=== PATIENT | male | born 1960 | race Caucasian/White ===

== ENCOUNTER → 2016-03-30 | Outpatient (CLI) | payer OTHER ==
[~2016-03-30] MED LIST: FISH OIL1 IU PO; LISINOPRIL AND1 TA1 PO; MELOXICAM7.5 MG PO; MULTIVITAMIN1 SGL PO; NATURAL FLAX1000 MG PO; NATURE'S BLEND100 MG PO; SUDAFED 12HR120 MG PO; TYLENOL 325MG325 MG PO; ULTRAM50 M1 PO
== END ==
LOC: RAD 07:49
DX: Z00.00 Encounter for general adult medical examination without abnormal findings (principal); I10 Essential (primary) hypertension; E78.2 Mixed hyperlipidemia

== ENCOUNTER → 2016-05-06 | Outpatient (CLI) | payer OTHER | LOC: RAD 12:57 | DX: M16.12 Unilateral primary osteoarthritis, left hip (principal) ==

== ENCOUNTER → 2016-10-21 | Outpatient (CLI) | payer OTHER ==
[~2016-10-21] VITALS: Ht 185.4 cm; Wt 153.6 kg
[2016-10-21 16:12] VITALS: BP 151/94
== END ==
LOC: AMSURD 07:44
DX: Z01.818 Encounter for other preprocedural examination (principal); Z01.810 Encounter for preprocedural cardiovascular examination

== ENCOUNTER → 2016-11-05 | Outpatient (CLI) | payer OTHER ==
[2016-10-21 16:12] VITALS: BP 151/94
== END ==
LOC: PT 09:39
DX: Z01.818 Encounter for other preprocedural examination (principal); M16.12 Unilateral primary osteoarthritis, left hip

== ENCOUNTER 2016-12-23 09:30 | Outpatient (RCR) | payer OTHER ==
[2016-10-21 16:12] VITALS: BP 151/94
== END 2016-12-23 10:00 | disposition home or self-care (01) ==
LOC: PT 09:30
DX: Z47.1 Aftercare following joint replacement surgery (principal); Z96.642 Presence of left artificial hip joint

== ENCOUNTER → 2017-05-18 | Outpatient (CLI) | payer OTHER ==
[2016-10-21 16:12] VITALS: BP 151/94
== END ==
LOC: RAD 08:52
DX: Z47.1 Aftercare following joint replacement surgery (principal); Z96.642 Presence of left artificial hip joint; M16.11 Unilateral primary osteoarthritis, right hip

== ENCOUNTER → 2017-10-13 | Outpatient (CLI) | payer OTHER ==
[2016-10-21 16:12] VITALS: BP 151/94
[2017-10-13 09:13] LABS: EOS # 0.2 (0.04-0.40); EOS % 2.8 % (0.0-4.0); HEMOGLOBIN 13.3 g/dL (13.5-18.0); LYMPH# 1.8 (1.50-4.00); MEAN CELL VOLUME 79 fl (78-100); MEAN CORPUSCULAR HEMOGLOBIN 26 pg (27-31); MEAN CORPUSCULAR HGB CONC 32 g/dL (33-37); MEAN PLATELET VOLUME 10.1 fl (7.4-10.4); MONO # 0.8 (0.20-0.80); NEU # 4.7 (1.40-6.50); PLATELET COUNT 298 K/mm3 (130-400); RED BLOOD COUNT 5.21 M/mm3 (4.20-5.60); RED CELL DISTRIBUTION WIDTH 16.3 % (11.5-14.5); WHITE BLOOD COUNT 7.6 K/mm3 (4.8-10.8)
[2017-10-13 09:33] LABS: ALBUMIN 4.3 g/dL (3.5-5.0); CALCIUM 9.7 mg/dL (8.4-10.2); POTASSIUM 4.4 mmol/L (3.6-5.0); TOTAL BILIRUBIN 0.6 mg/dL (0.2-1.3); TOTAL PROTEIN 7.3 g/dL (6.3-8.2)
[2017-10-13 10:42] LABS: ERYTHROCYTE SEDIMENTATION RATE 13 mm/hr (0-20)
== END ==
LOC: LAB 08:32
PROVIDERS: Internal Medicine
DX: Z12.5 Encounter for screening for malignant neoplasm of prostate (principal); Z00.00 Encounter for general adult medical examination without abnormal findings; Z12.11 Encounter for screening for malignant neoplasm of colon

== ENCOUNTER → 2018-05-16 | Outpatient (CLI) | payer OTHER ==
[2016-10-21 16:12] VITALS: BP 151/94
== END ==
LOC: RAD 15:24
DX: M17.11 Unilateral primary osteoarthritis, right knee (principal); Z96.642 Presence of left artificial hip joint

== ENCOUNTER → 2018-11-15 | Outpatient (CLI) | payer OTHER ==
[2016-10-21 16:12] VITALS: BP 151/94
[2018-11-15 08:04] LABS: EOS # 0.3 (0.04-0.40); EOS % 2.9 % (0.0-4.0); HEMATOCRIT 41.7 % (42.0-52.0); HEMOGLOBIN 13.3 g/dL (13.5-18.0); LYMPH# 2.2 (1.50-4.00); MEAN CELL VOLUME 77 fl (78-100); MEAN CORPUSCULAR HEMOGLOBIN 25 pg (27-31); MEAN CORPUSCULAR HGB CONC 32 g/dL (33-37); MEAN PLATELET VOLUME 9.2 fl (7.4-10.4); NEU # 5.6 (1.40-6.50); PLATELET COUNT 325 K/mm3 (130-400); RED BLOOD COUNT 5.39 M/mm3 (4.20-5.60); RED CELL DISTRIBUTION WIDTH 15.2 % (11.5-14.5); WHITE BLOOD COUNT 9.2 K/mm3 (4.8-10.8)
[2018-11-15 08:11] LABS: ALBUMIN 4.3 g/dL (3.5-5.0); POTASSIUM 4.3 mmol/L (3.5-5.1)
[2018-11-15 08:12] LABS: CALCIUM 9.5 mg/dL (8.3-10.5)
[2018-11-15 08:15] LABS: TOTAL BILIRUBIN 0.5 mg/dL (0.2-1.2)
[2018-11-15 09:06] LABS: ERYTHROCYTE SEDIMENTATION RATE 13 mm/hr (0-20)
== END ==
LOC: LAB 07:53
PROVIDERS: Internal Medicine
DX: Z00.00 Encounter for general adult medical examination without abnormal findings (principal); Z12.5 Encounter for screening for malignant neoplasm of prostate; Z12.11 Encounter for screening for malignant neoplasm of colon

== ENCOUNTER → 2019-07-27 | Outpatient (CLI) | payer OTHER ==
[2016-10-21 16:12] VITALS: BP 151/94
== END ==
LOC: LAB 07:47
DX: U07.1 COVID-19 (principal); Z56.89 Other problems related to employment

== ENCOUNTER → 2020-01-30 | Outpatient (CLI) | payer OTHER ==
[2016-10-21 16:12] VITALS: BP 151/94
[2020-01-30 11:40] LABS: EOS # 0.3 (0.04-0.40); HEMATOCRIT 43.2 % (42.0-52.0); LYMPH# 2.3 (1.50-4.00); MEAN CELL VOLUME 86 fl (78-100); MEAN CORPUSCULAR HEMOGLOBIN 28 pg (27-31); MEAN CORPUSCULAR HGB CONC 32 g/dL (33-37); MEAN PLATELET VOLUME 9.8 fl (7.4-10.4); MONO # 0.8 (0.20-0.80); NEU # 5.1 (1.40-6.50); PLATELET COUNT 310 K/mm3 (130-400); RED BLOOD COUNT 5.05 M/mm3 (4.20-5.60); RED CELL DISTRIBUTION WIDTH 14.3 % (11.5-14.5); WHITE BLOOD COUNT 8.5 K/mm3 (4.8-10.8)
[2020-01-30 11:42] LABS: ALBUMIN 4.5 g/dL (3.5-5.0); POTASSIUM 4.2 mmol/L (3.5-5.1)
[2020-01-30 11:43] LABS: CALCIUM 9.5 mg/dL (8.3-10.5)
[2020-01-30 11:44] LABS: TOTAL PROTEIN 7.3 g/dL (6.4-8.3)
[2020-01-30 11:46] LABS: TOTAL BILIRUBIN 0.5 mg/dL (0.2-1.2)
[2020-01-30 12:44] LABS: ERYTHROCYTE SEDIMENTATION RATE 22 mm/hr (0-20)
== END ==
LOC: LAB 10:44
PROVIDERS: Internal Medicine
DX: Z00.00 Encounter for general adult medical examination without abnormal findings (principal); Z12.5 Encounter for screening for malignant neoplasm of prostate; D64.9 Anemia, unspecified

== ENCOUNTER → 2020-05-21 | Outpatient (CLI) | payer OTHER ==
[2016-10-21 16:12] VITALS: BP 151/94
== END ==
LOC: RAD 10:12
DX: M25.562 Pain in left knee (principal); M25.561 Pain in right knee; Z96.642 Presence of left artificial hip joint

== ENCOUNTER → 2023-01-11 | Outpatient (CLI) | payer BC | LOC: PT 13:13 | DX: M25.562 Pain in left knee (principal); Z96.659 Presence of unspecified artificial knee joint ==

== ENCOUNTER 2023-01-27 14:55 | Outpatient (RCR) | payer BC | END 2023-02-13 | LOC: PT | DX: Z96.652 Presence of left artificial knee joint (principal) ==

== ENCOUNTER 2023-02-15 08:00 | Outpatient (RCR) | payer BC ==
[2023-02-17] MEDS ORDERED: CYCLOBENZAPRINE10 M1 PO (20:44)
[2023-02-18] MEDS ORDERED: CENTRUM MEN 501 EACH (02:19)
[2023-02-18] MEDS ORDERED: TURMERIC500 M1 (02:20)
[2023-02-18] MEDS ORDERED: LORATADINE D 101 T24 (02:22)
[2023-02-18] MEDS ORDERED: MASON NATURAL L20 MG (02:25)
[2023-02-18] MEDS ORDERED: ASPIRIN E.C. 8181 MG (10:53)
[2023-02-18] MEDS ORDERED: GLUCOSAMINE &1 EACH PO (10:54)
[2023-02-18] MEDS ORDERED: NATURE'S BLEND500 M1 PO (10:55)
[2023-02-18] MEDS ORDERED: VITAMIN C500 M7 PO (10:55)
[2023-02-18] MEDS ORDERED: NATURAL IRON65 MG PO (10:57)
[2023-02-18] MEDS ORDERED: B COMPLEX1 EACH PO (10:58)
[2023-02-18] MEDS ORDERED: COENZYME Q10100 M1 PO (10:59)
[2023-02-18] MEDS ORDERED: ZINC50 M4 PO (11:01)
[2023-02-18] MEDS ORDERED: VITAMIN E400 UNIT PO (11:01)
[2023-02-18] MEDS ORDERED: VITAMIN D325 MC2 PO (11:03)
== END 2023-03-16 | disposition home or self-care (01) ==
LOC: PT
DX: Z96.652 Presence of left artificial knee joint (principal)

== ENCOUNTER → 2023-03-07 | Outpatient (CLI) | payer BC ==
[~2023-03-07] MED LIST changes: +ASPIRIN E.C. 8181 MG; +B COMPLEX1 EACH PO; +CENTRUM MEN 501 EACH; +COENZYME Q10100 M1 PO; +CYCLOBENZAPRINE10 M1 PO; +GLUCOSAMINE &1 EACH PO; +LORATADINE D 101 T24; +MASON NATURAL L20 MG; +NATURAL IRON65 MG PO; +NATURE'S BLEND500 M1 PO; +TURMERIC500 M1; +VITAMIN C500 M7 PO; +VITAMIN D325 MC2 PO; +VITAMIN E400 UNIT PO; +ZINC50 M4 PO
[2023-03-07 10:09] LABS: BASO # 0.05 K/mm3 (0.02-0.10); EOS # 0.57 K/mm3 (0.04-0.40); EOS % 6.4 % (0.0-4.0); HEMATOCRIT 42.9 % (42.0-52.0); HEMOGLOBIN 13.8 g/dL (13.5-18.0); LYMPH# 2.33 K/mm3 (1.50-4.00); MEAN CELL VOLUME 86 fl (78-100); MEAN CORPUSCULAR HEMOGLOBIN 28 pg (27-31); MEAN CORPUSCULAR HGB CONC 32 g/dL (33-37); MEAN PLATELET VOLUME 9.1 fl (7.4-10.4); MONO # 1.02 K/mm3 (0.20-0.80); NEU # 4.92 K/mm3 (1.40-6.50); PLATELET COUNT 308 K/mm3 (130-400); RED BLOOD COUNT 4.97 M/mm3 (4.20-5.60); RED CELL DISTRIBUTION WIDTH 13.7 % (11.5-14.5); WHITE BLOOD COUNT 8.9 K/mm3 (4.8-10.8)
[2023-03-07 10:16] LABS: ALBUMIN 4.3 g/dL (3.4-4.8)
[2023-03-07 10:18] LABS: TOTAL PROTEIN 6.8 g/dL (6.2-8.1)
[2023-03-07 10:20] LABS: TOTAL BILIRUBIN 0.4 mg/dL (0.2-1.2)
== END ==
LOC: LAB 09:53
PROVIDERS: Physician Assistant
DX: M17.11 Unilateral primary osteoarthritis, right knee (principal)

== ENCOUNTER 2023-03-17 10:57 | Outpatient (RCR) | payer BC | END 2023-04-14 | disposition home or self-care (01) | LOC: PT | DX: Z48.89 Encounter for other specified surgical aftercare (principal); M25.561 Pain in right knee; Z96.651 Presence of right artificial knee joint ==

== ENCOUNTER → 2023-05-03 | Outpatient (CLI) | payer BC | LOC: RAD 10:04 | DX: M25.561 Pain in right knee (principal); Z96.653 Presence of artificial knee joint, bilateral ==